=== PATIENT | female | born 2000 | race African-American/Black ===

== ENCOUNTER 2019-10-13 10:13 | Emergency (ER) | payer OTHER ==
[~2019-10-13] VITALS: Ht 154.9 cm; Wt 78.6 kg
[2019-10-13 10:20] VITALS: TEMP 98.5
[2019-10-13 10:46] LABS: COLLECTION METHOD CLEAN CATCH
[2019-10-13 10:55] LABS: MUCOUS Present /lpf; PH 5 (5-8); URINE APPEARANCE Hazy; URINE BACTERIA Rare /hpf; URINE BILIRUBIN Negative (NEGATIVE); URINE BLOOD Negative (NEGATIVE); URINE COLOR Amber; URINE GLUCOSE Negative (NEGATIVE); URINE KETONE 1+ (NEGATIVE); URINE LEUKOCYTE ESTERASE Trace (NEGATIVE); URINE NITRATE Negative (NEGATIVE); URINE PROTEIN(semi-quant) 1+ (NEGATIVE); URINE RBC 0-2 /hpf
[2019-10-13 11:02] LABS: BILIRUBIN,TOTAL 0.5 mg/dL (0.0-1.0); CALCIUM 9.7 mg/dL (8.4-10.2); CREATININE, serum 0.31 (0.52-1.25); POTASSIUM 3.8 mmol/L (3.4-5.0); TOTAL PROTEIN 7.3 gm/dL (6.4-8.2)
[2019-10-13] MEDS ORDERED: PRENATAL TABLET PO (11:02)
[2019-10-13] MEDS ORDERED: ASPIRIN E.C. 8181 MG PO (11:02)
[2019-10-13] MEDS ORDERED: FOLIC ACID 11 MG/TA1 PO (11:02)
[2019-10-13] MEDS ORDERED: GLUCOPHAGE500 MG/TAB PO (11:03)
[2019-10-13 11:13] LABS: BASO % 0.1 % (0.0-2.0); EOS # 0.1 (0.0-0.7); EOS % 0.8 % (0-4.0); GRAN # 7.8 (1.4-6.5); GRAN % 74.5 % (42.2-75.2); HEMOGLOBIN 11.5 g/dl (12.0-15.0); LYMPH # 1.8 (1.2-3.4); LYMPH % 17.3 % (20.0-51.0); MEAN CELL VOLUME 71 fl (80.0-95.0); MEAN CORPUSCULAR HEMOGLOBIN 23 pg (26.0-32.0); MEAN CORPUSCULAR HGB CONC 32 g/dl (33.0-37.0); MEAN PLATELET VOLUME 9.4 fl (7.4-10.4); MONO # 0.7 (0.1-0.6); PLATELET COUNT 303 K/mm3 (130-400); RED BLOOD COUNT 5.12 M/mm3 (4.10-5.30)
[2019-10-13 11:24] LABS: HEMATOCRIT 36.3 % (35.0-45.0); REDCELL DISTRIBUTION WIDTH-CV 17.1 % (11.5-14.5)
[2019-10-13] MEDS ORDERED: MACROBID 1100 MG/CAP PO (11:55)
[2019-10-13 12:38] VITALS: BP 120/78; PULSE 79
== END 2019-10-13 12:38 | disposition home or self-care (01) ==
LOC: COL.ER 10:13
PROVIDERS: Emergency Medicine
DX: O26.892 Other specified pregnancy related conditions, second trimester (principal); R42 Dizziness and giddiness; E11.9 Type 2 diabetes mellitus without complications; Z3A.15 15 weeks gestation of pregnancy; Z79.82 Long term (current) use of aspirin; Z79.84 Long term (current) use of oral hypoglycemic drugs
CPT/HCPCS: J7030

== ENCOUNTER → 2020-01-27 | Outpatient (CLI) | payer OTHER ==
[~2020-01-27] VITALS: Ht 154.9 cm; Wt 80.9 kg
[~2020-01-27] MED LIST: ASPIRIN E.C. 8181 MG PO; FOLIC ACID 11 MG/TA1 PO; GLUCOPHAGE500 MG/TAB PO; MACROBID 1100 MG/CAP PO; PRENATAL TABLET PO
--- NOTE | 2020-01-27 15:00 | NUR ---
Presents to labor and delivery. States having decreased movement with one of the twins. Also states having left lower back pain. monitor on, both babies on.
[2020-01-27 15:25] VITALS: BP 103/61; PULSE 97; TEMP 98.3
[2020-01-27 16:00] VITALS: BP 110/63; PULSE 105
[2020-01-27 16:24] LABS: COLLECTION METHOD CLEAN CATCH
[2020-01-27 16:29] LABS: HEMATOCRIT 31.8 % (37.0-47.0); HEMOGLOBIN 9.2 g/dl (12.5-16.0); MEAN CELL VOLUME 63 fl (80.0-100.0); MEAN CORPUSCULAR HEMOGLOBIN 18 pg (27.0-31.0); MEAN CORPUSCULAR HGB CONC 29 g/dl (33.0-37.0); MEAN PLATELET VOLUME 9.4 fl (7.4-10.4); PLATELET COUNT 315 K/mm3 (130-400); RED BLOOD COUNT 5.07 M/mm3 (4.10-5.30); REDCELL DISTRIBUTION WIDTH-CV 20.7 % (11.5-14.5)
[2020-01-27 16:30] VITALS: BP 134/58; PULSE 113
--- NOTE | 2020-01-27 16:30 | NUR ---
ROLES IN AT 1613, ULTRASOUND AT BEDSIDE AT 1615. IV STARTED IN LEFT WRIST. MGS04 4MG BOLUS STARTED AT 1619, INFUSING WITH LR GOING AT 75ML/HR. INJECTION OF 12MG BETAMETHASONE GIVEN IN LEFT THIGH. IV ALSO STARTED IN RIGHT HAND.
[2020-01-27 16:31] LABS: PH 6 (5-8); URINE APPEARANCE Hazy; URINE BACTERIA Rare /hpf; URINE BILIRUBIN Negative (NEGATIVE); URINE BLOOD Negative (NEGATIVE); URINE COLOR Yellow; URINE GLUCOSE Negative (NEGATIVE); URINE KETONE Negative (NEGATIVE); URINE LEUKOCYTE ESTERASE 1+ (NEGATIVE); URINE NITRATE Negative (NEGATIVE); URINE PROTEIN(semi-quant) Negative (NEGATIVE); URINE RBC 0-2 /hpf; URINE UROBILINOGEN Negative (NEGATIVE)
[2020-01-27 16:45] VITALS: BP 115/55; PULSE 103
--- NOTE | 2020-01-27 16:45 | NUR ---
MGSO4 4GM INFUSION COMPLETE, 2GM/HOUR DOSE HUNG AT 0005
[2020-01-27 17:00] VITALS: BP 95/54; PULSE 112
--- NOTE | 2020-01-27 17:00 | NUR ---
BABIES DIFFICULT TO MONITOR. ROLES IN AT 1648 AND PERFORMS ANOTHER ULTRASOUND TO FIND BABIES FOR MONITORING.
[2020-01-27 17:20] VITALS: BP 98/55; PULSE 103
--- NOTE | 2020-01-27 17:50 | NUR ---
1720-FLIGHT TEAM FROM [facility] HERE TO TRANSPORT PT TO [facility]. REPORT GIVEN. PT TO TRANSPORT ANABELLE. DISCHARGED AT 1740. 1750-CALLED LABOR AND DELIVERY AT [facility] AND GAVE REPORT TO JAMIE Rodriguez
== END ==
LOC: LDRO 14:58
PROVIDERS: Obstetrics & Gynecology
DX: O36.8130 Decreased fetal movements, third trimester, not applicable or unspecified (principal); O30.003 Twin pregnancy, unspecified number of placenta and unspecified number of amniotic sacs, third trimester; Z3A.30 30 weeks gestation of pregnancy
CPT/HCPCS: J0290; J0702; J3475; J7120

== ENCOUNTER 2020-02-14 21:17 | Outpatient (CLI) | payer OTHER ==
[~2020-02-14] VITALS: Ht 154.9 cm; Wt 81.4 kg
--- NOTE | 2020-02-14 21:00 | NUR ---
Pt arrived on unit via wheelchair and escorted by . Pt complaints of vaginal bleeding starting this evening and reports occasional cramping over the last couple days but thought it was due to diarrhea x3 days. Pt reports normal movement for both babies. Pt reports she is 33 weeks with twins, pt followed by [facility] and M in [place]. EFM and toco monitors started. Vital signs WNL. SVE 480/-3. Spoke with Dr. Diggs regarding pt's arrival, complaints, pertinent history with FHR tracing and SVE reviewed. Orders for labs and medication received. See EMAR for details. Plan of care reviewed with pt and at the bedside.
[2020-02-14 21:26] VITALS: BP 155/56; PULSE 108; TEMP 98.2
[2020-02-14] MEDS ORDERED: NATURAL IRON65 MG (21:32)
[2020-02-14 21:45] VITALS: BP 107/71; PULSE 94
[2020-02-14 22:07] LABS: BASO % 0.2 % (0.0-2.0); EOS % 0.4 % (0-4.0); GRAN # 5.2 (1.4-6.5); GRAN % 64.2 % (42.2-75.2); LYMPH # 2.3 (1.2-3.4); LYMPH % 27.8 % (20.0-51.0); MEAN CELL VOLUME 62 fl (80.0-100.0); MEAN CORPUSCULAR HGB CONC 29 g/dl (33.0-37.0); MONO # 0.6 (0.1-0.6); MONO % 6.9 % (1.7-9.3); PLATELET COUNT 277 K/mm3 (130-400); RED BLOOD COUNT 4.95 M/mm3 (4.10-5.30); REDCELL DISTRIBUTION WIDTH-CV 22.9 % (11.5-14.5)
[2020-02-14 22:08] LABS: HEMATOCRIT 30.6 % (37.0-47.0); HEMOGLOBIN 8.8 g/dl (12.5-16.0); MEAN CORPUSCULAR HEMOGLOBIN 18 pg (27.0-31.0)
[2020-02-14 22:15] VITALS: BP 103/71; PULSE 86
--- NOTE | 2020-02-14 22:15 | NUR ---
Dr. Diggs at the bedside.
[2020-02-14 22:16] LABS: ALBUMIN 3.4 gm/dL (3.5-5.0); BILIRUBIN,TOTAL 0.6 mg/dL (0.0-1.0); CALCIUM 8.9 mg/dL (8.4-10.2); CREATININE, serum 0.45 (0.52-1.25); POTASSIUM 4.1 mmol/L (3.4-5.0); TOTAL PROTEIN 6.8 gm/dL (6.4-8.2)
[2020-02-14 22:45] VITALS: BP 106/64; PULSE 109
--- NOTE | 2020-02-14 22:45 | NUR ---
Dr. Diggs at the bedside discussing plan of care for transfer to [facility] via EMS. Both pt and verbalized an understanding, agreed with the plan and states no questions at this time.
[2020-02-14 22:46] LABS: COLLECTION METHOD CLEAN CATCH
[2020-02-14 22:52] LABS: MUCOUS Present /lpf; PH 6 (5-8); SQUAMOUS EPITHELIAL 0-2 /hpf; URINE APPEARANCE Clear; URINE BACTERIA None Seen /hpf; URINE BILIRUBIN Negative (NEGATIVE); URINE BLOOD 3+ (NEGATIVE); URINE COLOR Yellow; URINE GLUCOSE Negative (NEGATIVE); URINE KETONE Negative (NEGATIVE); URINE LEUKOCYTE ESTERASE Trace (NEGATIVE); URINE NITRATE Negative (NEGATIVE); URINE PROTEIN(semi-quant) Negative (NEGATIVE); URINE RBC 0-2 /hpf; URINE UROBILINOGEN Negative (NEGATIVE); URINE WBC 0-2 /hpf
[2020-02-14 23:18] VITALS: BP 107/67; PULSE 110
--- NOTE | 2020-02-14 23:18 | NUR ---
2318- Pt off EFM for transfer to [facility] via EMS. 2330- Pt off unit via stretcher in the care of EMS. Report given to EMS and report called to Jessenia Simeon at [facility].
== END 2020-02-14 23:30 | disposition short-term general hospital (02) ==
LOC: LDRO 21:17
PROVIDERS: Obstetrics & Gynecology
DX: O46.93 Antepartum hemorrhage, unspecified, third trimester (principal); Z3A.33 33 weeks gestation of pregnancy
CPT/HCPCS: J0290; J7120